=== PATIENT | male | born 1970 | race Caucasian/White ===

== ENCOUNTER 2019-11-03 20:56 | Emergency (ER) | payer MEDICARE, OTHER ==
[~2019-11-03] VITALS: Ht 182.9 cm; Wt 93.0 kg
[2019-11-03 22:21] VITALS: BP 120/90
== END 2019-11-04 00:22 | disposition home or self-care (01) ==
LOC: ER 20:58
DX: J10.1 Influenza due to other identified influenza virus with other respiratory manifestations (principal)
CPT/HCPCS: 87804

== ENCOUNTER 2020-06-03 16:42 | Inpatient (IN) | payer MEDICARE, OTHER, MEDICAID ==
[~2020-06-03] VITALS: Ht 180.3 cm; Wt 98.2 kg
[2020-06-03 17:25] LABS: Urine Bacteria NONE SEEN /hpf (None Seen); Urine Blood 3+ /uL (Negative); Urine Mucus FEW (None Seen); Urine Specific Gravity 1.033 (1.001-1.035); Urine WBC 59 /hpf (0 - 3)
[2020-06-03 18:17] LABS: Basophils # (auto) 0.1 10 ^3/uL (0-0.2); Basophils % (auto) 1.2 % (0.0-2.0); Eosinophils # (auto) 0.2 10 ^3/uL (0-0.8); Eosinophils % (auto) 1.8 % (0.0-7.0); Hematocrit 48.6 % (41.0-53.0); Lymphocytes # (auto) 1.2 10 ^3/uL (0.4-5.4); Lymphocytes % (auto) 11.4 % (10.0-50.0); Mean Corpuscular Hemoglobin 30.7 pg (28.0-32.0); Mean Corpuscular Volume 92.9 fL (80.0-100.0); Monocytes # (auto) 1.3 10 ^3/uL (0-1.3); Monocytes % (auto) 11.9 % (0.0-12.0); Neutrophils % (auto) 73.7 % (37.0-80.0); Nucleated Red Blood Cells % 0.1 %; Platelet Count (auto) 207 10^3/uL (140-450); Red Blood Cells 5.23 10^6/uL (4.5-5.90); Red Cell Distribution Width 13.4 % (11.8-14.3); White Blood Cell 10.9 10^3/uL (4.4-10.8)
[2020-06-03 18:31] LABS: Albumin 3.9 g/dL (3.4-5.0); Calcium 8.8 mg/dL (8.5-10.1); Potassium 3.5 mmol/L (3.5-5.1)
[2020-06-03 18:33] LABS: BUN/Creatinine Ratio 8.5
[2020-06-03 18:35] LABS: Bilirubin, Total 0.5 mg/dL (0.2-1.0); Total Protein 7.4 g/dL (6.4-8.2)
[2020-06-03] MEDS ORDERED: levETIRAcetam 500 MG TAB PO ONE (20:30)
[2020-06-03] MEDS ORDERED: KETOROLAC TROMETH 60MG/2ML VIAL IM ONE (20:30)
[2020-06-03] MEDS ORDERED: cefTRIAXone SOD 1,000 MG VL IM ONE (21:00)
[2020-06-03] MEDS ORDERED: TAMSULOSIN HYDROCHLORIDE 0.4 MG CAP PO ONE (21:00)
[2020-06-03] MEDS ORDERED: HYDROcodone-ACET 5/325MG TAB PO PRN (21:30)
[2020-06-03] MEDS ORDERED: DOCUSATE SOD 100 MG CAP PO PRN (21:30)
[2020-06-03] MEDS ORDERED: ONDANSETRON HCL 4 MG/2 ML VIAL IV PRN (21:30)
[2020-06-03] MEDS ORDERED: SODIUM CHLORIDE 0.9% 1,000 ML IV ONE (21:30)
[2020-06-03] MEDS ORDERED: ACETAMINOPHEN 325 MG TAB PO PRN (21:30)
[2020-06-03] MEDS: cefTRIAXone 1GM/50ML D5W 50 ML IV SCH (23:19)
[2020-06-03] MEDS ORDERED: hydrALAZINE HCL 10 MG TAB PO PRN (23:30)
[2020-06-03] MEDS: SODIUM CHLORIDE 0.9% 1,000 ML IV SCH (23:42)
--- NOTE | 2020-06-03 23:54 | NUR ---
[facility] admit from ER TRISTON WATSON JR admitted to [facility] after SBAR received. Patient oriented to self to EUGENE GARCIA RN primary RN,207 [address], and unit policies regarding patient care and visiting hours. Mother was allowed at bedside. Patient weighed by bedscale and encouraged to call if they need something. All questions and concerns addressed, patient and mother verbalized understanding. Note:
[2020-06-04 00:33] VITALS: BP 134/86
[2020-06-04] MEDS ORDERED: LEVE500T32 PO (00:56)
[2020-06-04 04:54] VITALS: BP 151/93
[2020-06-04 05:21] LABS: Basophils # (auto) 0.1 10 ^3/uL (0-0.2); Eosinophils # (auto) 0.2 10 ^3/uL (0-0.8); Eosinophils % (auto) 2.6 % (0.0-7.0); Hemoglobin 14.1 g/dL (13.5-17.5); Lymphocytes # (auto) 1.1 10 ^3/uL (0.4-5.4); Lymphocytes % (auto) 15.6 % (10.0-50.0); Mean Corpuscular Hemoglobin 30.4 pg (28.0-32.0); Mean Corpuscular Hgb Conc. 32.8 g/dL (32.0-36.0); Mean Corpuscular Volume 92.6 fL (80.0-100.0); Monocytes # (auto) 1.1 10 ^3/uL (0-1.3); Monocytes % (auto) 15.8 % (0.0-12.0); Neutrophils # (auto) 4.5 10 ^3/uL (1.6-8.6); Platelet Count (auto) 161 10^3/uL (140-450); Red Blood Cells 4.65 10^6/uL (4.5-5.90); Red Cell Distribution Width 13.4 % (11.8-14.3); White Blood Cell 6.9 10^3/uL (4.4-10.8)
--- NOTE | 2020-06-04 05:30 | NUR ---
Patient is sleeping. No SOB or signs of acute distress. Will continue to monitor.
[2020-06-04 05:39] LABS: Calcium 8.3 mg/dL (8.5-10.1); Potassium 3.2 mmol/L (3.5-5.1)
[2020-06-04 05:42] LABS: BUN/Creatinine Ratio 11.2
[2020-06-04] MEDS ORDERED: hydrALAZINE HCL 10 MG TAB PO SCH (06:00)
--- NOTE | 2020-06-04 06:41 | NUR ---
PAGED HOSPITALIST FOR POTASSIUM LEVEL OF 3.2. WAITING FOR CALLBACK
--- NOTE | 2020-06-04 08:00 | NUR ---
Morning note patient resting in bed with even and unlabored respirations, no distress noted. Patient has history of autism. Patient's mother is at bedside interpreting patient's answers to assessment questions. Patient knows his name. POC instructed to the patient's mother. Patient's mother verbalized understanding. Educated the patient and patient's mother on fall precautions and to call for assistance as needed. Patient and patient's mother verbalized understanding. Fall precautions in place with call light within reach.
[2020-06-04] MEDS: TAMSULOSIN HYDROCHLORIDE 0.4 MG CAP PO SCH (08:33)
[2020-06-04] MEDS: FINASTERIDE 5 MG TAB PO SCH (08:34)
[2020-06-04] MEDS: cefTRIAXone 1GM/50ML D5W 50 ML IV SCH (08:34)
[2020-06-04 08:52] VITALS: BP 146/97
--- NOTE | 2020-06-04 12:00 | NUR ---
RE: Urology Dr. Vlaverde, urologist, called to discuss patient's status and POC. Notified MD of CT ABD/Pelvis results. MD verbalized understanding. Continue care per MD order.
[2020-06-04 13:00] VITALS: BP 156/98
[2020-06-04] MEDS ORDERED: POTASSIUM EFFERVESENT TAB 25 MEQ PO ONE (16:00)
--- NOTE | 2020-06-04 16:18 | NUR ---
MD was at bedside - Dr. Martin This RN was at bedside. Notified MD of patient's recent potassium level as well as patient's mothers request to resume home dose of Keppra. MD verbalized understanding. Orders received and read back.
[2020-06-04 16:26] VITALS: BP 142/96
[2020-06-04] MEDS: SODIUM CHLORIDE 0.9% 1,000 ML IV SCH (16:30)
--- NOTE | 2020-06-04 16:30 | NUR ---
RE: Potassium Effervescent Education provided to the patient's mother at bedside. Patient's mother verbalized understanding. Cup with medication left at bedside for patient to drink.
--- NOTE | 2020-06-04 16:35 | NUR ---
Urine strainer placed in restroom per MD order. Education provided to the patient's mother. Patient's mother verbalized understanding.
--- NOTE | 2020-06-04 17:00 | NUR ---
Patient ambulated to the restroom with a steady gait. Patient's mother at patients side. No distress noted. No assistance needed.
--- NOTE | 2020-06-04 18:26 | NUR ---
Patient refused dinner meal Patient did not open eyes and respond to verbal commands to eat dinner meal. Addendum: 06/04/20 at 1828 by Yulisa Mariee RN Disregard note. Incorrect patient.
--- NOTE | 2020-06-04 18:28 | NUR ---
Patient sitting in bed eating dinner meal Patient's mother at bedside.
--- NOTE | 2020-06-04 18:32 | NUR ---
Closing note Patient sitting in bed with even and unlabored respirations, no distress noted. Fall precautions in place with call light within reach. Patient's mother at bedside.
--- NOTE | 2020-06-04 18:55 | NUR ---
Care endorsed to THOMAS Gabriel.
--- NOTE | 2020-06-04 19:20 | NUR ---
Opening Shift Note Assumed care of patient from Yulisa GUZMAN, patient resting in bed with even and unlabored respirations, no distress noted. Patient has history of autism. Patient's mother is at bedside. No S/S of distress/SOB or pain. POC instructed to the patient's mother. Patient's mother verbalized understanding. Bed in lowest position, side rails x2, brakes locked, call light within reach. Will continue to monitor for changes Q1hr and PRN.
[2020-06-04] MEDS: levETIRAcetam 500 MG TAB PO SCH (19:52)
[2020-06-04 21:00] VITALS: BP 143/83
[2020-06-05 05:00] VITALS: BP 132/70
[2020-06-05] MEDS: levETIRAcetam 500 MG TAB PO SCH (05:16)
[2020-06-05 05:52] LABS: Basophils # (auto) 0.1 10 ^3/uL (0-0.2); Basophils % (auto) 1.1 % (0.0-2.0); Eosinophils # (auto) 0.3 10 ^3/uL (0-0.8); Eosinophils % (auto) 5.4 % (0.0-7.0); Hematocrit 41.7 % (41.0-53.0); Hemoglobin 14.2 g/dL (13.5-17.5); Lymphocytes % (auto) 18.1 % (10.0-50.0); Mean Corpuscular Hemoglobin 31.5 pg (28.0-32.0); Mean Corpuscular Hgb Conc. 34.1 g/dL (32.0-36.0); Mean Corpuscular Volume 92.4 fL (80.0-100.0); Monocytes # (auto) 0.8 10 ^3/uL (0-1.3); Monocytes % (auto) 14.4 % (0.0-12.0); Neutrophils # (auto) 3.4 10 ^3/uL (1.6-8.6); Nucleated Red Blood Cells % 0.1 %; Platelet Count (auto) 159 10^3/uL (140-450); Red Blood Cells 4.51 10^6/uL (4.5-5.90); Red Cell Distribution Width 13.3 % (11.8-14.3); White Blood Cell 5.5 10^3/uL (4.4-10.8)
[2020-06-05 06:07] LABS: BUN/Creatinine Ratio 9.7; Calcium 7.8 mg/dL (8.5-10.1); Potassium 3.5 mmol/L (3.5-5.1)
[2020-06-05] MEDS: SODIUM CHLORIDE 0.9% 1,000 ML IV SCH (06:41)
[2020-06-05] MEDS: cefTRIAXone 1GM/50ML D5W 50 ML IV SCH (08:58)
[2020-06-05] MEDS: TAMSULOSIN HYDROCHLORIDE 0.4 MG CAP PO SCH (08:58)
[2020-06-05] MEDS: FINASTERIDE 5 MG TAB PO SCH (08:58)
[2020-06-05 09:00] VITALS: BP 146/97
--- NOTE | 2020-06-05 09:00 | NUR ---
RE: Pain Patient's mother reports patient is grabbing at his left and right lower abdomen indicating pain. PRN pain medication administered per MD order. Patient is scratching at the left and right lower abdomen. Redness developed in the LLQ. Patient's mother requested bandage. Bandage provided.
--- NOTE | 2020-06-05 09:25 | NUR ---
MD was at bedside - Dr. Martin Notified MD of patient's mothers report that patient is grabbing at right & left lower abdomen and that PRN pain medication administered per MD order. MD verbalized understanding. Ordered to continue to monitor.
--- NOTE | 2020-06-05 10:43 | NUR ---
RE: Urology Patient okay for discharge per [facility].
--- NOTE | 2020-06-05 11:04 | NUR ---
Updated Dr. Martin RE: Urology Informed Dr. Martin that urology has cleared patient for discharge. verbalized understanding.
--- NOTE | 2020-06-05 12:19 | NUR ---
Discharge Discharge education and paperwork provided to the patient's mother, Marlene, per MD order. Marlene verbalized understanding. Instructed Marlene to call [facility] as well as PCP to schedule a follow up appointment. Marlene verbalized understanding. IV removed with aseptic technique, catheter intact. Dressing applied. Patient tolerated well, no trauma to site. Marlene reports having all personal belongings. Marlene requesting patient ambulate to private vehicle. Marlene to notify staff once patient is ready to depart from unit.
--- NOTE | 2020-06-05 12:27 | NUR ---
Patient ambulated off unit Steady gait. Patient accompanied by staff member and patient's mother. No distress noted.
== END 2020-06-05 12:27 | disposition home or self-care (01) | DRG 694 ==
LOC: ER 16:42 → OVERFLOW 16:43 → CENTRAL 23:34
PROVIDERS: ADMIT Hospitalist; ATTEND Internal Medicine
DX: N13.2 Hydronephrosis with renal and ureteral calculous obstruction (principal); F84.0 Autistic disorder; E87.6 Hypokalemia; G40.909 Epilepsy, unspecified, not intractable, without status epilepticus; Z87.442 Personal history of urinary calculi; Z87.891 Personal history of nicotine dependence; R31.9 Hematuria, unspecified
CPT/HCPCS: 36415; 74176; 80048; 80053; 81001; 82550; 84443; 85025; 87086; G0378; J0696; J1885

== ENCOUNTER 2022-07-11 06:16 | Emergency (ER) | payer MEDICARE, OTHER, MEDICAID ==
[~2022-07-11] VITALS: Ht 180.3 cm; Wt 95.4 kg
[~2022-07-11 06:16] MED LIST: LEVE500T32 PO
[2022-07-11 08:10] VITALS: BP 142/98
[2022-07-11] MEDS ORDERED: cefTRIAXone SOD 1,000 MG VL IM ONE (08:15)
[2022-07-11] MEDS ORDERED: CEPH-510 PO (08:17)
[2022-07-11] MEDS ORDERED: BENZ100C19 PO (08:17)
== END 2022-07-11 08:33 | disposition home or self-care (01) ==
LOC: ER 06:16
DX: J03.90 Acute tonsillitis, unspecified (principal); J06.9 Acute upper respiratory infection, unspecified; Z88.1 Allergy status to other antibiotic agents; Z88.8 Allergy status to other drugs, medicaments and biological substances; Z90.89 Acquired absence of other organs
CPT/HCPCS: 71046; 96372; 99283; J0696